=== PATIENT | female | born 1935 | race Caucasian/White ===

== ENCOUNTER 2024-03-02 07:05 | Day surgery (SDC) | payer MEDICARE, OTHER ==
[2024-02-27 15:06] LABS: BASOPHILS % (AUTO) 0.5 % (0-1); EOSINOPHILS # (AUTO) 0.2 X10'3 (0-0.9); EOSINOPHILS % (AUTO) 5.1 % (0-6); LYMPHOCYTES # (AUTO) 1.1 X10'3 (1.1-4.8); LYMPHOCYTES % (AUTO) 25.5 % (21-51); MEAN CORPUSCULAR HEMOGLOBIN 31.5 PG (27.0-31.0); MEAN CORPUSCULAR HGB CONC 34.2 g/dL (33.0-36.5); MEAN CORPUSCULAR VOLUME 92.1 FL (78-98); MEAN PLATELET VOLUME 8.8 FL (7.4-10.4); MONOCYTES # (AUTO) 0.4 X10'3 (0-0.9); NEUTROPHILS # (AUTO) 2.6 X10'3 (1.8-7.7); NEUTROPHILS % (AUTO) 58.9 % (42-75); PRE OP HEMATOCRIT 38.8 % (35.0-45.0); PRE OP HEMOGLOBIN 13.3 g/dL (12.0-16.0); PRE OP PLATELET COUNT 175 X10'3 (140-440); PRE OP WHITE BLOOD COUNT 4.5 10'3 (4.8-10.8); RED BLOOD COUNT 4.21 X10'6 (4.20-5.60); RED CELL DISTRIBUTION WIDTH 14.8 % (11.5-14.5)
[2024-02-27 15:26] LABS: ALBUMIN 3.3 G/DL (3.4-5.0); ALBUMIN/GLOBULIN RATIO 0.9 (1.1-1.5); ALKALINE PHOSPHATASE 97 IU/L (46-116); BLOOD UREA NITROGEN 24 MG/DL (7-18); BUN/CREATININE RATIO 17.4 (10.0-20.0); CALCIUM 9.1 MG/DL (8.5-10.1); CHLORIDE 103 MMOL/L (99-107); CREATININE 1.38 MG/DL (0.40-0.90); PRE OP ALT 13 U/L (30-65); PRE OP ANION GAP 5 (8-16); PRE OP AST 16 U/L (10-37); PRE OP BILIRUB, TOTAL 0.8 MG/DL (0.0-1.0); PRE OP GLUCOSE 88 MG/DL (70-104); PRE OP POTASSIUM 3.9 MMOL/L (3.4-5.1); PRE OP SODIUM 139 MMOL/L (135-145); TOTAL CARBON DIOXIDE 31.4 MMOL/L (24-32); TOTAL PROTEIN 6.9 G/DL (6.4-8.2); eGFR 36 ML/MIN
[~2024-03-02] VITALS: Ht 157.5 cm; Wt 56.8 kg
[2024-03-02] VITALS (12 sets, daily range): BP systolic 168–202; BP diastolic 75–100; PULSE 48–61; RESP 12–19; TEMP 97.5; O2SAT 93–96
[2024-03-02] MEDS: cefazolin 2gm/D5W 100mL 100 ML IV ONE (05:30)
[~2024-03-02 07:05] MED LIST: ASPI81TA52 PO; BUME1TAB8 PO; CARV6.2553 PO; CETI10TA14 PO; CHERRY TART PO; COQ10 PO; DOCUMENT DATE & TIME OF BETA-BLOCKER PO ONE; EMPA10TA PO; ESCI-8 PO; ESTRADIOL TD; HYALURONIC ACID PO; IRBE75TA15 PO; L-LYSINE PO; MAGNESIUM CHELATE PO; MELA1TAB52 PO; NAPR-996 PO; OXYB5TAB21 PO; POTA-207 PO; PREVAGEN PO; SELENIUM PO; VITAMIN D3 PO; VITAMIN E PO; [UNRECOGNIZED DRUG - OTHER] PO
[2024-03-02] MEDS: famotidine 20mg tablet PO ONE (08:35)
[2024-03-02] MEDS: ringers solution, lacted 1,000 ML IV SCH (08:35)
[2024-03-02] MEDS ORDERED: ringers solution, lacted 1,000 ML IV SCH (08:40)
[2024-03-02] MEDS ORDERED: ondansetron/PF 4mg/2ml inj IV PRN (08:40)
[2024-03-02] MEDS ORDERED: fentaNYL/PF 50MCG/1 ML 2ML syringe IV PRN ×2 (08:40)
[2024-03-02] MEDS ORDERED: BUPIVAcaine/PF 2.5mg/ml (0.25%) 10ml vial ONE (10:00)
[2024-03-02] MEDS ORDERED: LIDOcaine 2% (20mg/ml) 5ml vial ONE (10:00)
[2024-03-02] MEDS ORDERED: midazolam 1 mg/ML 2ml injection ONE (10:08)
[2024-03-02] MEDS ORDERED: fentaNYL/PF 50MCG/1 ML 2ML syringe ONE (10:08)
[2024-03-02] MEDS ORDERED: LIDOcaine 0.5% (5mg/ml) 50ml vial ONE (10:08)
[2024-03-02] MEDS: enalaprilat dihydrate 2.5mg/2ml vial IV PRN (11:16)
[2024-03-02] MEDS: hydrALAZINE 20mg/ml inj. IV ONE (12:16)
== END 2024-03-02 13:01 | disposition home or self-care (01) ==
LOC: PAS 07:05
PROVIDERS: ATTEND Orthopaedic Surgery Hand Surgery
DX: M19.041 Primary osteoarthritis, right hand (principal); I44.4 Left anterior fascicular block; I12.9 Hypertensive chronic kidney disease with stage 1 through stage 4 chronic kidney disease, or unspecified chronic kidney disease; N18.30 Chronic kidney disease, stage 3 unspecified; F41.9 Anxiety disorder, unspecified; F32.A Depression, unspecified; M19.90 Unspecified osteoarthritis, unspecified site; Z87.891 Personal history of nicotine dependence; Z85.828 Personal history of other malignant neoplasm of skin; Z79.82 Long term (current) use of aspirin; Z79.891 Long term (current) use of opiate analgesic; Z79.899 Other long term (current) drug therapy; Z90.710 Acquired absence of both cervix and uterus; Z96.651 Presence of right artificial knee joint; Z96.611 Presence of right artificial shoulder joint; Z96.612 Presence of left artificial shoulder joint; Z98.49 Cataract extraction status, unspecified eye; Z98.890 Other specified postprocedural states; Z88.1 Allergy status to other antibiotic agents; Z88.2 Allergy status to sulfonamides; Z88.5 Allergy status to narcotic agent; Z88.8 Allergy status to other drugs, medicaments and biological substances
CPT/HCPCS: 26531; 36415; 80053; 82948; 85025; 93005; J0360; J0690; J2250; J3010; J3490; J7030; J7120; L8630; Z7506; Z7512; A4215; A4618; A6449; A7000